=== PATIENT | female | born 1995 | race Caucasian/White ===

== ENCOUNTER 2021-02-10 13:33 | Inpatient (IN) | payer MEDICAID, SELFPAY ==
[~2021-02-10] VITALS: Ht 162.6 cm; Wt 62.1 kg
--- NOTE | 2021-02-10 13:33 | NUR ---
Patient BIBA ALS accompanied by Alan kim 183, transferred to bed 7. RN evaluating the patient at bedside.
[2021-02-10 13:34] VITALS: BP 82/65
--- NOTE | 2021-02-10 13:34 | NUR ---
Dr. Segura is evaluating the patient at bedside.
[2021-02-10] MEDS ORDERED: NACL 0.9% 1,000 ML IV ONE ×2 (13:35→15:35)
[2021-02-10] MEDS ORDERED: LORazepam 2 MG/ML VIAL ONE (13:35)
[2021-02-10] MEDS ORDERED: LORazepam 2 MG/ML VIAL IVP ONE ×2 (13:35→15:15)
--- NOTE | 2021-02-10 13:35 | NUR ---
25 Y/O FEMALE BIBA FROM [employer] FOUND POST- ICTAL, AGITATED AND COMBATIVE. PER EMS, PT HAD TONIC-CLONIC SEIZURE LASTING APPROXIMATELY 30 SEC. PT APPEARS AGITATED AND CONFUSED. PT REORIENTED. PT DENIES PAIN AT THIS TIME. PT STATES THAT SHE TAKES HER SEIZURE MEDICATIONS BUT FORGETS SOMETIMES. PT UNABLE TO RECALL NAME OF MEDICATION. PT DENIES ALCOHOL/DRUG USE. PT ATTACHED TO WET END TESTER. PT SITTING IN BED WITH EVEN AND UNLABORED RESPIRATIONS. BED IN LOWEST POSITION, BRAKES LOCKED, X2 SIDERAILS UP. SEIZURE PRECAUTIONS IN PLACE. MEDHX- SEIZURE NKA
[2021-02-10 14:31] LABS: BASOPHILS % (AUTO) 0.3 % (0.0-2.0); EOSINOPHILS # (AUTO) 0.1 K/uL (0-0.4); EOSINOPHILS % (AUTO) 1.1 % (0.0-4.0); HEMATOCRIT 39.3 % (36-48); HEMOGLOBIN 13.1 g/dL (12.0-16.0); LYMPHOCYTES # (AUTO) 3.2 K/uL (2.5-16.5); MEAN CORPUSCULAR HEMOGLOBIN 31 pg (27-31); MEAN CORPUSCULAR HGB CONC 33 g/dL (33-37); MEAN CORPUSCULAR VOLUME 91.7 fL (80-94); MONOCYTES # (AUTO) 0.4 K/uL (0.8-1.0); MONOCYTES % (AUTO) 5.4 % (1.7-9.3); NEUTROPHILS # (AUTO) 3.9 K/uL (1.8-7.7); NEUTROPHILS % (AUTO) 51.2 % (42.2-75.2); PLATELET COUNT (AUTO) 252 K/uL (140-450); RED BLOOD CELL COUNT(AUTO) 4.29 MIL/uL (4.20-5.40); RED CELL DISTRIBUTION WIDTH 13.3 % (11.6-13.7); WHITE BLOOD COUNT (AUTO) 7.6 K/uL (4.8-10.8)
--- NOTE | 2021-02-10 14:54 | NUR ---
PT AMBULATED WITH STEADY GAIT TO RESTROOM FOR URINE SAMPLE
--- NOTE | 2021-02-10 15:05 | NUR ---
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 PT STATES THAT SHE HAS BEEN OFF OF SEIZURE MEDS X1 MONTH BUT STATES THAT SHE FEELS MUCH BETTER
[2021-02-10] MEDS ORDERED: ATI.5 PO (15:06)
--- NOTE | 2021-02-10 15:10 | NUR ---
WHILE REMOVING IV FOR DISCHARGE, PT BEGAN SCREAMING, YELLING AND BECOMING COMBATIVE. PT JUMPED OUT OF BED AND STATED "I HATE THIS FEELING, I KNOW IM GOING TO HAVE ONE" PT THEN STATED THAT THIS HAPPENS WHEN SHE IS ABOUT TO SEIZE. PT REORIENTED
[2021-02-10] MEDS ORDERED: LORazepam 1 MG TAB ONE (15:12)
[2021-02-10 15:13] LABS: ANION GAP 19.5 (8-16); CHLORIDE 109 mmol/L (98-107); CREATININE 0.9 mg/dL (0.6-1.3); GFR ARICAN-AMERICAN 97 mL/min (>90); GLUCOSE 66 mg/dL (74-106); POTASSIUM 3.5 mmol/L (3.5-5.1); SODIUM SERUM 147 mmol/L (136-145); UREA NITROGEN, BLOOD 20 mg/dL (7-18)
--- NOTE | 2021-02-10 15:13 | NUR ---
DR GILBERT AT BEDSIDE EVALUATING PT
[2021-02-10] MEDS ORDERED: LORazepam 1 MG TAB PO ONE (15:15)
[2021-02-10 15:16] LABS: ALBUMIN 3.8 g/dL (3.4-5.0); ASPARTATE AMINOTRANSFERASE 7 U/L (15-37); TOTAL BILIRUBIN 0.3 mg/dL (0.0-1.0)
[2021-02-10 15:28] LABS: BARBITURATE, URINE NEGATIVE ng/ml (NEG <=200); BENZODIAZEPINE, URINE NEGATIVE ng/mL (NEG <=200); CANNABINOID, URINE NEGATIVE ng/mL (NEG <=50); COCAINE, URINE NEGATIVE ng/mL (NEG <=300); OPIATE, URINE NEGATIVE ng/mL (NEG <=2000); PHENCYCLIDINE SCREEN,URINE NEGATIVE ng/mL (NEG <=25)
--- NOTE | 2021-02-10 15:48 | NUR ---
DR MARSHALL AT BEDSIDE EVALUATING PT
--- NOTE | 2021-02-10 16:10 | NUR ---
PT TAKEN TO CT VIA [facility]
--- NOTE | 2021-02-10 16:22 | NUR ---
Patient returned from CT scan.
--- NOTE | 2021-02-10 16:25 | NUR ---
RAHEL GARCIA SAMPLE COLLECTED AND WALKED TO LAB
[2021-02-10] MEDS: LORazepam 2 MG/ML VIAL IVP PRN ×2 (17:08→17:59)
--- NOTE | 2021-02-10 17:59 | NUR ---
PT HAD ANOTHER "AURA" AND STARTED SCREAMING/ YELLING AND JUMPED OUT OF BED FOR THE 2ND TIME AFTER ADMISSION ORDERS WERE IN. 2 DOSES OF ATIVAN GIVEN. CONTACTED DR MARSHALL. NO WITNESSED SEIZURE ACTIVITY, MORE BEHAVORIAL. PER JOANNA, CONSULT WITH DR CH.
--- NOTE | 2021-02-10 18:05 | NUR ---
PT REFUSING TO PUT ON GOWN, DURING "AURA" PT RIPPED IT OFF AND ALL MONITORS.
[2021-02-10] MEDS ORDERED: levETIRAcetam 1,000 MG in NACL 0.9% 100 ML IV SCH (18:30)
--- NOTE | 2021-02-10 19:16 | NUR ---
GAVE REPORT TO TEA ELIAS. TRANSFER OF CARE AT THIS TIME
--- NOTE | 2021-02-10 19:19 | NUR ---
RECEIVED REPORT FROM TEA HAYES FOR CONTINUITY OF CARE
--- NOTE | 2021-02-10 20:04 | NUR ---
RECEIVED PHONE REPORT FROM ER NURSE. WAITING PATIENT TO TRANSFER TO UNIT.
[2021-02-10 20:15] VITALS: BP 105/54
--- NOTE | 2021-02-10 20:15 | NUR ---
RECEIVED PATIENT TRANSFER TO UNIT. DX SEIZURES. PATIENT IS SLEEPING, AROUSABLE TO VOICE BUT DROWSY, CHEST RISE AND FALL, NO SIGN OF DISTRESS NOTED. RESPIRATORY EVEN AND UNLABORED, LUNG SOUND CLEAR TO AUSCULTATE, ON ROOM AIR. SKIN WARM, DRY, NON DIAPHORETIC, IV ON LEFT AC 20G, SALINE LOCK, INTACT AND PATENT. BOWEL SOUND ACTIVE TO ALL QUADRANTS, ABDOMEN SOFT, NON DISTENDED. PATIENT DENIES ANY PAIN OR DISCOMFORT. ABLE TO MAKE NEEDS KNOWN. MRSA COLLECT. ORIENTED TO UNIT ROUTINE AND ROOM. PLAN OF CARE DISCUSSED. PRECAUTION IN PLACE. SITTER AT BEDSIDE FOR SAFETY. WILL CONTINUE TO MONITOR.
--- NOTE | 2021-02-10 20:20 | NUR ---
Patient will be admitted to care of DR. MARSHALL. Admited to TELEMMETRY. Will go to room 123A. Belongings list completed. Report to ZEV METCALF.
[2021-02-10] MEDS ORDERED: levETIRAcetam 500 MG TAB PO SCH (21:00)
--- NOTE | 2021-02-10 21:22 | NUR ---
CONTACT PATIENT'S MOM, KARAN NGUYEN, , TO NOTIFY PATIENT ADMISSION AND COLLECT MEDICAL HISTORY. PATIENT'S FAMILY AWARE, ALL QUESTIONS ANSWERED.
--- NOTE | 2021-02-10 22:11 | NUR ---
NON ADMINISTER SCHEDULE MEDICATION PO DUE TO PATIENT IS TOO DROWSY, CONTACT DR WALKER FOR ORDER.
--- NOTE | 2021-02-10 22:34 | NUR ---
RECEIVED ORDER FROM MEENA MELENDREZ 500MG IVPB @210ML/HR ONCE TIME DOSE. WILL FOLLOW ORDER.
[2021-02-10] MEDS ORDERED: levETIRAcetam 500 MG in NACL 0.9% 100 ML IV SCH (22:35)
[2021-02-10] MEDS ORDERED: levETIRAcetam 100 MG/ML VIAL IV ONE (22:40)
--- NOTE | 2021-02-10 23:06 | NUR ---
MEENA IVPB ORDER GIVEN WITH EDUCATION. PATIENT IS SLEEPING, NO SIGN OF DISTRESS NOTED. PRECAUTION IN PLACE. WILL CONTINUE TO MONITOR.
[2021-02-10] MEDS ORDERED: MAG SULF 2000 MG/WATER PREMIX 50 ML IV PRN (23:55)
[2021-02-10] MEDS ORDERED: POTASSIUM CHLORIDE 10 MEQ TABER PO PRN (23:55)
[2021-02-11] VITALS: BP 99/49
[2021-02-11] MEDS ORDERED: ONDANSETRON 4 MG/2 ML VIAL IM/IVP PRN
[2021-02-11] MEDS ORDERED: ZOLPIDEM 5 MG TAB PO PRN
[2021-02-11] MEDS ORDERED: ACETAMINOPHEN 325 MG TAB PO PRN
[2021-02-11] MEDS ORDERED: HYDROcodone/APAP 5/325 MG 1 TAB TAB PO PRN
[2021-02-11] MEDS ORDERED: MORPHINE SULFATE 2 MG/ML SYR IVP PRN
[2021-02-11] MEDS ORDERED: DOCUSATE SODIUM 100 MG GELCAP PO PRN
[2021-02-11] MEDS ORDERED: LORazepam 2 MG/ML VIAL IM/IVP PRN
--- NOTE | 2021-02-11 | NUR ---
ROUND CHECK. PATIENT IS SLEEPING. CHEST RISE AND FALL NOTED. NO SIGN OF RESPIRATORY DISTRESS. PRECAUTION IN PLACE. WILL CONTINUE TO MONITOR.
[2021-02-11 00:32] LABS: PROTHROMBIN TIME 9.8 secs (10.8-13.4)
[2021-02-11 00:42] LABS: MAGNESIUM 1.8 mg/dL (1.8-2.4); PHOSPHORUS 3.6 mg/dL (2.5-4.9); THYROID STIMULATING HORMONE 1.26 uIU/mL (0.34-3.74)
[2021-02-11] MEDS: NACL 0.9% 1,000 ML IV SCH ×3 (01:30→21:06)
--- NOTE | 2021-02-11 02:00 | NUR ---
ROUND CHECK. PATIENT IS SLEEPING, CHEST RISE AND FALL NOTED. NO SIGN OF RESPIRATORY DISTRESS. PRECAUTION IN PLACE. SITTER AT BEDSIDE. WILL CONTINUE TO MONITOR.
--- NOTE | 2021-02-11 03:30 | NUR ---
PATIENT IS AWAKE, ASSIST PATIENT AMBULATE TO BATHROOM. PATIENT TOLERATED WELL. PATIENT IS DROWSY, ASSIST PATIENT BACK TO BED. PATIENT CONTINUE TO SLEEP. NO SIGN OF DISTRESS NOTED. PRECAUTION IN PLACE. WILL CONTINUE TO MONITOR.
[2021-02-11 04:00] VITALS: BP 98/56
--- NOTE | 2021-02-11 04:20 | NUR ---
MANAGER OPERATING AT BEDSIDE FOR BLOOD DRAW. PATIENT TOLERATED WELL.
[2021-02-11 05:34] LABS: ANION GAP 12.2 (8-16); BASOPHILS % (AUTO) 0.5 % (0.0-2.0); CARBON DIOXIDE 24.1 mmol/L (21-32); CREATININE 0.5 mg/dL (0.6-1.3); EOSINOPHILS # (AUTO) 0.1 K/uL (0-0.4); EOSINOPHILS % (AUTO) 1.9 % (0.0-4.0); HEMATOCRIT 34.5 % (36-48); HEMOGLOBIN 11.8 g/dL (12.0-16.0); LYMPHOCYTES # (AUTO) 2.1 K/uL (2.5-16.5); LYMPHOCYTES % (AUTO) 39.2 % (20.5-51.1); MEAN CORPUSCULAR HEMOGLOBIN 31 pg (27-31); MEAN CORPUSCULAR HGB CONC 34 g/dL (33-37); MEAN CORPUSCULAR VOLUME 90.3 fL (80-94); MONOCYTES # (AUTO) 0.3 K/uL (0.8-1.0); MONOCYTES % (AUTO) 5.6 % (1.7-9.3); NEUTROPHILS # (AUTO) 2.8 K/uL (1.8-7.7); NEUTROPHILS % (AUTO) 52.8 % (42.2-75.2); PLATELET COUNT (AUTO) 187 K/uL (140-450); POTASSIUM 4.3 mmol/L (3.5-5.1); RED BLOOD CELL COUNT(AUTO) 3.82 MIL/uL (4.20-5.40); WHITE BLOOD COUNT (AUTO) 5.4 K/uL (4.8-10.8)
[2021-02-11 05:38] LABS: MAGNESIUM 1.8 mg/dL (1.8-2.4); PHOSPHORUS 3.4 mg/dL (2.5-4.9)
[2021-02-11 05:52] LABS: CHOL/HDL RATIO 2.9 (1-4.5)
--- NOTE | 2021-02-11 06:00 | NUR ---
PATIENT IS AWAKE, ASSIST PATIENT AMBULATE TO BATHROOM. PATIENT TOLERATED WELL. PATIENT ABLE TO VERBALIZE NAME, AND PLACE. PRECAUTION IN PLACE. WILL CONTINUE TO MONITOR.
--- NOTE | 2021-02-11 06:45 | NUR ---
PATIENT IS A/A/O X3. RESTING IN BED, USING HER CELL PHONE. UNSURE WHAT HAPPEN YESTERDAY. ORIENTED PATIENT TO UNIT ROUTINE AND ROOM. PATIENT VERBALIZED UNDERSTANDING. PRECAUTION IN PLACE. WILL CONTINUE TO MONITOR.
--- NOTE | 2021-02-11 07:20 | NUR ---
ENDORSED PATIENT TO AM NURSE FOR CONTINUITY OF CARE. PATIENT IS STABLE.
--- NOTE | 2021-02-11 07:22 | NUR ---
RECEIVED REPORT FROM NIGHT NURSE PT IS AWAKE WITH 1:1 SITTER, ON ROOM AIR, SINUS RHYTHM ON TELEMONITOR, SKIN INTACT, AMBULATORY WITH ASSIST AND CONTINENT, IN SEIZURE PRECAUTION , IV INTACT ON RIGHT AC WITH SODIUM CHLORIDE 0.9% 1000 ML AT 100 MLS/HR, HEAD CT NEGATIVE. SAFETY MEASURES IN PLACE AND CALL LIGHT WITHIN REACH. WILL CONTINUE TO MONITOR.
[2021-02-11 08:00] VITALS: BP 112/73
--- NOTE | 2021-02-11 08:38 | NUR ---
PATIENT HAS BEEN SCREENED AND CATEGORIZED LOW NUTRITION RISK. PATIENT WILL BE SEEN WITHIN 7 DAYS OF ADMISSION. 02/17/[address]
--- NOTE | 2021-02-11 08:55 | NUR ---
SCHEDULED MEDICATION GIVEN CHECK VITAL SIGNS BP112/73 [place] 72 NO SEIZURE NOTED AND PATIENT IS AWAKE AND CALM AT THIS TIME. DENIES ANY PAIN. WILL CONTINUE TO MONITOR.
[2021-02-11] MEDS ORDERED: levETIRAcetam 500 MG in NACL 0.9% 100 ML IV SCH (09:00)
--- NOTE | 2021-02-11 10:33 | NUR ---
MADE ROUNDS PT IS SLEEPING NO SEIZURE NOTED AND PT STABLE. PT SEEN BY DR MARSHALL.
--- NOTE | 2021-02-11 11:24 | NUR ---
EKG ON GOING AT THIS TIME
[2021-02-11 12:00] VITALS: BP 103/69
--- NOTE | 2021-02-11 13:00 | NUR ---
MADE ROUNDS PAT IS RESTING. NO DISTRESS NOTED.
[2021-02-11 14:34] LABS: APPEARANCE,URINE CLEAR (CLEAR); BILIRUBIN,URINE NEGATIVE (NEGATIVE); BLOOD, URINE NEGATIVE (NEGATIVE); LEUKOCYTE ESTERASE ,URINE NEGATIVE (NEGATIVE); NITRITE, URINE NEGATIVE (NEGATIVE); UGLUCOSE NEGATIVE (NEGATIVE)
[2021-02-11 14:41] LABS: COLOR,URINE STRAW (YELLOW)
--- NOTE | 2021-02-11 14:45 | NUR ---
VOICEMAIL MESSAGE LEFT TO DR. CH CELLPHONE REGARDING THE CONSULT. AWAITING FOR CALL BACK.
--- NOTE | 2021-02-11 14:58 | NUR ---
ATIVAN 1 MG GIVEN FOR ANXIETY CHECK VITAL SIGNS PRIOR TO MEDICATION BP 118/70 WA 68.
[2021-02-11 16:00] VITALS: BP 117/71
--- NOTE | 2021-02-11 17:00 | NUR ---
MADE ROUNDS AND PATIENT SUDDENLY SCREAMS, ENCOURAGED TO RELAX AND DO DEEP BREATHING.
--- NOTE | 2021-02-11 18:14 | NUR ---
PATIENT SEEN BY DR SALAS AND ABLE TO ASSESSED AND TALKED TO THE PATIENT.
[2021-02-11] MEDS: ESCITALOPRAM 20 MG TAB PO SCH (18:24)
--- NOTE | 2021-02-11 18:29 | NUR ---
ANXIETY MEDICATION GIVEN ESCITALOPRAM 20 MG 5 MG DOSE PRESCRIBED.
--- NOTE | 2021-02-11 19:19 | NUR ---
ENDORSED TO NIGHT NURSE FOR CONTINUITY OF CARE. PT IS STABLE.
--- NOTE | 2021-02-11 19:39 | NUR ---
RECEIVED PATIENT FROM AM NURSE FOR CONTINUITY OF CARE. PATIENT RESTING IN BED WITH 1:1 SITTER. AROUSABLE TO VOICE, A/A/O X4. RESPIRATORY EVEN AND UNLABORED ON ROOM AIR, NO SIGN OF RESPIRATORY DISTRESS NOTED. SKIN WARM, DRY, AND NON DIAPHORETIC. IV ON RIGHT AC 20G, INTACT AND PATENT, IS INFUSING FLUID. PATIENT DENIES ANY PAIN OR DISCOMFORT. PLAN OF CARE DISCUSSED. PRECAUTION IN PLACE. CALL LIGHT WITHIN REACH. WILL CONTINUE TO MONITOR.
[2021-02-11 20:00] VITALS: BP 102/54
--- NOTE | 2021-02-11 21:09 | NUR ---
SCHEDULE MEDICATION GIVEN WITH EDUCATION. PATIENT IS RESTING, AROUSABLE TO VOICE AND LIGHT SHAKE. ABLE TO VERBALIZED UNDERSTANDING. PRECAUTION IN PLACE. CALL LIGHT WITHIN REACH. 1:1 SITTER FOR SAFETY. WILL CONTINUE TO MONITOR.
--- NOTE | 2021-02-11 22:00 | NUR ---
ROUND CHECK. PATIENT IS SLEEPING, CHEST RISE AND FALL NOTED. NO SIGN OF RESPIRATORY DISTRESS NOTED. PRECAUTION IN PLACE. CALL LIGHT WITHIN REACH. WILL CONTINUE TO MONITOR.
[2021-02-12] VITALS: BP 106/57
--- NOTE | 2021-02-12 | NUR ---
ROUND CHECK. PATIENT IS SLEEPING, CHEST RISE AND FALL NOTED. NO SIGN OF DISTRESS NOTED. PRECAUTION IN PLACE. CALL LIGHT WITHIN REACH. WILL CONTINUE TO MONITOR.
--- NOTE | 2021-02-12 02:00 | NUR ---
PATIENT IS SLEEPING, CHEST RISE AND FALL NOTED. NO SIGN OF RESPIRATORY DISTRESS NOTED. PRECAUTION IN PLACE. CALL LIGHT WITHIN REACH. 1:1 SITTER. WILL CONTINUE TO MONITOR.
[2021-02-12 04:00] VITALS: BP 143/66
--- NOTE | 2021-02-12 04:15 | NUR ---
PATIENT AMBULATES TO BATHROOM. STANDBY TO ASSIST. PATIENT TOLERATED WELL. NO SIGN OF DISTRESS NOTED. PRECAUTION IN PLACE. CALL LIGHT WITHIN REACH. WILL CONTINUE TO MONITOR.
[2021-02-12 05:54] LABS: BASOPHILS % (AUTO) 0.6 % (0.0-2.0); EOSINOPHILS # (AUTO) 0.1 K/uL (0-0.4); EOSINOPHILS % (AUTO) 1.2 % (0.0-4.0); HEMATOCRIT 33.8 % (36-48); HEMOGLOBIN 11.5 g/dL (12.0-16.0); LYMPHOCYTES # (AUTO) 2.1 K/uL (2.5-16.5); LYMPHOCYTES % (AUTO) 44.4 % (20.5-51.1); MEAN CORPUSCULAR HEMOGLOBIN 31 pg (27-31); MEAN CORPUSCULAR HGB CONC 34 g/dL (33-37); MEAN CORPUSCULAR VOLUME 91.5 fL (80-94); MONOCYTES # (AUTO) 0.3 K/uL (0.8-1.0); MONOCYTES % (AUTO) 5.9 % (1.7-9.3); NEUTROPHILS # (AUTO) 2.2 K/uL (1.8-7.7); NEUTROPHILS % (AUTO) 47.9 % (42.2-75.2); PLATELET COUNT (AUTO) 222 K/uL (140-450); RED CELL DISTRIBUTION WIDTH 13.3 % (11.6-13.7); WHITE BLOOD COUNT (AUTO) 4.7 K/uL (4.8-10.8)
[2021-02-12] MEDS: NACL 0.9% 1,000 ML IV SCH ×2 (06:00→16:00)
[2021-02-12 06:03] LABS: ANION GAP 13.8 (8-16); CARBON DIOXIDE 23.9 mmol/L (21-32); CREATININE 0.7 mg/dL (0.6-1.3); POTASSIUM 3.7 mmol/L (3.5-5.1)
[2021-02-12 06:08] LABS: MAGNESIUM 1.9 mg/dL (1.8-2.4); PHOSPHORUS 3.2 mg/dL (2.5-4.9)
--- NOTE | 2021-02-12 06:09 | NUR ---
ROUND CHECK. PATIENT IS AWAKE, USING HER CELL PHONE. NO SIGN OF RESPIRATORY DISTRESS NOTED. PRECAUTION IN PLACE. CALL LIGHT WITHIN REACH. WILL CONTINUE TO MONITOR.
--- NOTE | 2021-02-12 07:30 | NUR ---
ENDORSED PATIENT TO AM NURSE FOR CONTINUITY OF CARE. PATIENT IS STABLE.
--- NOTE | 2021-02-12 07:34 | NUR ---
RECEIVED REPORT FROM COMMERCIAL LINES UNDERWRITER AT BEDSIDE. PATIENT ALERT AWAKE ORIENTED X4 NOT IN ANY DISTRESS NOTED. WITH IVF ON GOING AND INFUSING WELL. ON MONITOR SHOWS SR. NEEDS ATTENDED, WITH SITTER AT BEDSIDE FOR SAFETY. NO SEIZURE NOTED. CALL LIGHT WITHIN REACH. WILL CONTINUE TO MONITOR.
[2021-02-12 08:00] VITALS: BP_SYST 102; BP_SYST 110; BP_DIAS 54; BP_DIAS 70
[2021-02-12] MEDS: ESCITALOPRAM 20 MG TAB PO SCH (08:22)
[2021-02-12] MEDS ORDERED: CRUSHER, PILL MC ONE (08:27)
--- NOTE | 2021-02-12 10:25 | NUR ---
DUE MEDICATION GIVEN AND TOLERATED WELL. PATIENT COOPERATIVE, DENIES PAIN. WILL CONTINUE TO MONITOR.
[2021-02-12] MEDS ORDERED: levETIRAcetam 500 MG TAB PO SCH (10:45)
[2021-02-12] MEDS ORDERED: ESCI5TAB PO (10:48)
[2021-02-12] MEDS ORDERED: LEVE250T1 PO (10:48)
[2021-02-12 12:00] VITALS: BP_SYST 110; BP_SYST 127; BP_DIAS 65; BP_DIAS 70
[2021-02-12 12:07] LABS: T4 (THYROXINE) 7.5 ug/dL (4.5-12.0)
--- NOTE | 2021-02-12 12:30 | NUR ---
FOLLOW UP CARDIO FOR EEG.
--- NOTE | 2021-02-12 14:55 | NUR ---
EEG IS DONE. WILL FOLLOW UP. DR. BEAVERS WILL PAGE DR MCKENZIE.
[2021-02-12 16:00] VITALS: BP 143/66
--- NOTE | 2021-02-12 16:11 | NUR ---
IV REMOVED AND DISTRIBUTION DISTRICT SUPERVISOR. PATIENT READY TO GO HOME. DISCHARGE INSTRUCTION REGARDING FOLLOW UP AT [facility] AND FOLLOW UP WITH DR. MCKENZIE GIVEN AND VERBALIZED UNDERSTANDING. WAITING FOR THE MOTHER TO PICK KER UP. NO SEIZURE ACTIVITY. IN STABLE CONDITION.
--- NOTE | 2021-02-12 16:33 | NUR ---
DC PATIENT AMBULATORY ACCOMPANIED BY ME, IN STABLE CONDITION.
--- NOTE | 2021-02-12 16:34 | NUR ---
DC PATIENT AMBULATORY ACCOMPANIED BY ME, IN STABLE CONDITION.
== END 2021-02-12 16:25 | disposition home or self-care (01) | DRG 53 ==
LOC: MED 13:33 → MTU 16:08 → MMU 19:54 → MTU 19:57
PROC: 4A00X4Z Measurement of Central Nervous Electrical Activity, External Approach (ICD-10-PCS; principal; 2021-02-12)
DX: G40.909 Epilepsy, unspecified, not intractable, without status epilepticus (principal); N17.0 Acute kidney failure with tubular necrosis; G93.41 Metabolic encephalopathy; E86.0 Dehydration; E87.0 Hyperosmolality and hypernatremia; Z20.822 Contact with and (suspected) exposure to COVID-19; F41.1 Generalized anxiety disorder; F39 Unspecified mood [affective] disorder
CPT/HCPCS: 36415; 70450; 80048; 80053; 80305; 81003; 82140; 82150; 83036; 83690; 83735; 83880; 84100; 84134; 84436; 84443; 84484; 84703; 85025; 85610; 85730; 87081; 96361; 96374; 96376; 99291; G0482; J1644; J1953; J2060

== ENCOUNTER 2021-09-22 14:28 | Emergency (ER) | payer OTHER, SELFPAY ==
[~2021-09-22] VITALS: Ht 167.6 cm; Wt 70.3 kg
[~2021-09-22 14:28] MED LIST: ATI.5 PO; ESCI5TAB PO; LEVE250T1 PO
[2021-09-22 14:35] VITALS: BP 119/79
--- NOTE | 2021-09-22 14:35 | NUR ---
25 y/o F BIBA from work for seizures; full tonic/clonic. Pt postical given Midazolam 5mg IM pt combative/agitated on scene. EMS BS: 90. EMS states no oral trauma, physical trauma, incontinence. Pt med compliant. AccuChek 89. Bed locked in lowest position, side rails x 2. Seizure precautions in place. PMH: epilepsy Meds: herb MEHTA
--- NOTE | 2021-09-22 14:35 | NUR ---
BIBA to bed 14. Seizure precautions in place.
[2021-09-22 15:47] LABS: BASOPHILS % (AUTO) 0.3 % (0.0-2.0); EOSINOPHILS # (AUTO) 0.1 K/uL (0-0.4); EOSINOPHILS % (AUTO) 0.6 % (0.0-4.0); HEMATOCRIT 40.6 % (36-48); HEMOGLOBIN 13.6 g/dL (12.0-16.0); LYMPHOCYTES # (AUTO) 2.3 K/uL (2.5-16.5); LYMPHOCYTES % (AUTO) 25.2 % (20.5-51.1); MEAN CORPUSCULAR HEMOGLOBIN 30 pg (27-31); MEAN CORPUSCULAR HGB CONC 34 g/dL (33-37); MEAN CORPUSCULAR VOLUME 90.5 fL (80-94); MONOCYTES # (AUTO) 0.5 K/uL (0.8-1.0); MONOCYTES % (AUTO) 5.1 % (1.7-9.3); NEUTROPHILS # (AUTO) 6.3 K/uL (1.8-7.7); NEUTROPHILS % (AUTO) 68.8 % (42.2-75.2); PLATELET COUNT (AUTO) 255 K/uL (140-450); RED BLOOD CELL COUNT(AUTO) 4.49 MIL/uL (4.20-5.40); RED CELL DISTRIBUTION WIDTH 12.9 % (11.6-13.7); WHITE BLOOD COUNT (AUTO) 9.2 K/uL (4.8-10.8)
--- NOTE | 2021-09-22 16:12 | NUR ---
IV removed, catheter intact and site benign. Applied folded 4x4 gauze and tape to stop bleeding.
[2021-09-22 16:13] VITALS: BP 119/79
--- NOTE | 2021-09-22 16:13 | NUR ---
Patient discharged with v/s stable. Written and verbal after care instructions given and explained. Patient verbalized understanding. Ambulatory with steady gait. All questions addressed prior to discharge. Advised to follow up with PMD. Patient waitng for taxi outside in ER lobby.
[2021-09-22 16:44] LABS: ANION GAP 16.1 (8-16); CARBON DIOXIDE 26.6 mmol/L (21-32); CREATININE 0.7 mg/dL (0.6-1.3); POTASSIUM 3.7 mmol/L (3.5-5.1)
== END 2021-09-22 16:13 | disposition left against medical advice (07) ==
LOC: MED 14:28
DX: R56.9 Unspecified convulsions (principal)
CPT/HCPCS: 36415; 80048; 84703; 85025; 93005; 99284; J1953; J7060